=== PATIENT | female | born 1965 | race Caucasian/White ===

== ENCOUNTER 2020-05-21 21:10 | Inpatient (IN) ==
[2020-05-21 22:04] LABS: Apearance,Urine CLEAR (Clear); Bacteria,Urine Occasional /HPF (Few); Bilirubin,Urine Negative (Negative); Blood, Urine Negative (Negative); Glucose,Urine (UA) Negative (Negative); Hyaline Casts,Urine 4 /LPF (0-3); Ketones,Urine Negative (Negative); Mucus,Urine Occasional /LPF (Occasional); Nitrite,Urine Negative (Negative); Protein,Urine Negative; RBC,Urine 1 /HPF (0-4); Squamous Epithelial Cell,Urine Occasional /HPF (0-10); Urine Color Yellow (Yellow); Urine Specific Gravity 1.009 (1.001-1.035); Urine Urobilinogen < 2.0 EU/DL (0.2-1.0); WBC,Urine 1 /HPF (0-6)
[2020-05-21 22:10] LABS: Barbiturates Screen,Urine Negative (Negative); Benzodiazepines Screen,Urine Negative (Negative); Cannabinoid Screen,Urine Negative (Negative); Opiate Screen,Urine Negative (Negative); Phencyclidine Screen,Urine Negative (Negative)
[2020-05-21 22:51] LABS: Basophils # 0.1 10*3/uL (0.0-0.2); Basophils % 0.4 % (0.0-0.8); Eosinophils % 0.1 % (0.00-10.9); Hematocrit 37.9 VOL% (35.7-47.0); Hemoglobin 13.4 GM/DL (12.0-16.0); Immature Granulocytes % 0.8 %; Immature Granulocytes Absolute 0.14 #; Lymphocytes # 2.4 10*3/uL (1.4-4.0); Lymphocytes % 13.7 % (21.3-54.2); Mean Corpuscular HGB Conc 35.4 GM/DL (32-36); Mean Corpuscular Volume 90.5 FL (87-102); Monocytes % 6.9 % (1.7-12.7); Neutrophils % 78.1 % (38.7-73.9); Platelet Count 444 T/CUMM (130-400); Red Blood Count 4.19 MC/CUMM (3.8-5.5); Red Cell Distribution Width 13.4 % (9.3-17.3); White Blood Count 17.6 T/CUMM (4-12)
[2020-05-21 23:02] LABS: INR 1.1; PT Patient Result 11.3 SECS (9.8-11.9); Partial Thromboplastin Time 34.1 SECS (23.9-33.8)
[2020-05-21] MEDS ORDERED: ONDANSETRON 4 MG/2 ML VIAL IV ONE (23:23)
[2020-05-21] MEDS ORDERED: MORPHINE 4 MG/1 ML VIAL IV STA (23:23)
[2020-05-21 23:24] LABS: Alanine Aminotransferase 38 U/L (13-56); Albumin 3.7 G/DL (3.4-5.0); Alkaline Phosphatase 90 U/L (45-117); Aspartate Amino Transferase 64 U/L (0-37); Blood Urea Nitrogen 3 MG/DL (7-18); Calcium 9.2 MG/DL (8.5-10.1); Estimated Glom Filtration Rate 106 ML/MIN; Glucose 104 MG/DL (74-106); Osmolality,Calculated 240.1 MOS/KG (273-304); Total Protein 7.3 G/DL (6.4-8.3)
[2020-05-22] MEDS ORDERED: ONDANSETRON 4 MG/2 ML VIAL IV PRN (00:50)
[2020-05-22] MEDS ORDERED: SODIUM CHLORIDE 0.9% 1,000 ML IV SCH (01:00)
[2020-05-22] MEDS: MORPHINE 4 MG/1 ML VIAL IV PRN ×3 (08:05→21:03)
[2020-05-22] MEDS: PANTOPRAZOLE 40 MG TABLET PO SCH (08:06)
[2020-05-22 08:19] LABS: Basophils # 0.1 10*3/uL (0.0-0.2); Basophils % 0.4 % (0.0-0.8); Eosinophils # 0.1 10*3/uL (0.0-0.87); Eosinophils % 0.5 % (0.00-10.9); Hematocrit 37.2 VOL% (35.7-47.0); Hemoglobin 13.1 GM/DL (12.0-16.0); Immature Granulocytes % 1.1 %; Lymphocytes # 4.3 10*3/uL (1.4-4.0); Lymphocytes % 22.8 % (21.3-54.2); Mean Corpuscular HGB Conc 35.2 GM/DL (32-36); Mean Corpuscular Volume 91.6 FL (87-102); Mean Platelet Volume 8.8 FL (9.6-12.0); Monocytes % 7.7 % (1.7-12.7); Neutrophils % 67.5 % (38.7-73.9); Platelet Count 442 T/CUMM (130-400); Red Blood Count 4.06 MC/CUMM (3.8-5.5); Red Cell Distribution Width 13.4 % (9.3-17.3); White Blood Count 18.7 T/CUMM (4-12)
[2020-05-22 08:37] LABS: Calcium 8.8 MG/DL (8.5-10.1); Osmolality,Calculated 248.6 MOS/KG (273-304)
[2020-05-22 08:46] LABS: Eosinophils 2 % (0-10); Hypochromasia 1+; Lymphocytes 16 % (20-55); Platelet Estimate Adequate; Segmented Neutrophils 75 % (50-85); Total Cells Counted 100
[2020-05-22] MEDS ORDERED: lisinopriL 10 MG TABLET PO SCH (09:00)
[2020-05-22] MEDS: amLODIPine 5 MG TABLET PO SCH (09:27)
[2020-05-22] MEDS: POTASSIUM CHLORIDE 20 MEQ TABLET PO PRN ×4 (09:51→17:05)
[2020-05-22] MEDS ORDERED: MAGNESIUM SULF RIDER 2 GM in PREMIX 1 EACH IV PRN (11:42)
[2020-05-22] MEDS ORDERED: MAGNESIUM SULF RIDER 4 GM in PREMIX 1 EACH IV PRN (11:42)
[2020-05-22] MEDS: SODIUM CHLORIDE 0.9% 1,000 ML IV SCH (11:51)
[2020-05-22] MEDS: FOLIC ACID 1 MG TABLET PO SCH (11:53)
[2020-05-22] MEDS: THIAMINE 100 MG TABLET PO SCH (11:53)
[2020-05-22] MEDS ORDERED: ZALEPLON 5 MG CAPSULE PO SCH (22:00)
[2020-05-22] MEDS: ZALEPLON 5 MG CAPSULE PO SCH (22:23)
[2020-05-23] MEDS: MORPHINE 4 MG/1 ML VIAL IV PRN ×5 (00:59→20:03)
[2020-05-23] MEDS: SODIUM CHLORIDE 0.9% 1,000 ML IV SCH ×2 (01:46→15:54)
[2020-05-23 04:55] LABS: Calcium 8.3 MG/DL (8.5-10.1); Osmolality,Calculated 264.4 MOS/KG (273-304)
[2020-05-23 05:06] LABS: Basophils # 0.1 10*3/uL (0.0-0.2); Basophils % 0.5 % (0.0-0.8); Eosinophils # 0.1 10*3/uL (0.0-0.87); Hematocrit 31.9 VOL% (35.7-47.0); Immature Granulocytes % 0.6 %; Immature Granulocytes Absolute 0.06 #; Lymphocytes # 3.3 10*3/uL (1.4-4.0); Lymphocytes % 31.2 % (21.3-54.2); Mean Corpuscular HGB Conc 34.2 GM/DL (32-36); Mean Corpuscular Volume 93.5 FL (87-102); Mean Platelet Volume 8.6 FL (9.6-12.0); Monocytes % 10.1 % (1.7-12.7); Neutrophils % 56.6 % (38.7-73.9); Red Blood Count 3.41 MC/CUMM (3.8-5.5); Red Cell Distribution Width 14.2 % (9.3-17.3)
[2020-05-23 05:11] LABS: Hemoglobin 10.9 GM/DL (12.0-16.0); Platelet Count 347 T/CUMM (130-400); White Blood Count 10.6 T/CUMM (4-12)
[2020-05-23] MEDS: amLODIPine 5 MG TABLET PO SCH (09:43)
[2020-05-23] MEDS: FOLIC ACID 1 MG TABLET PO SCH (09:43)
[2020-05-23] MEDS: THIAMINE 100 MG TABLET PO SCH (09:44)
[2020-05-23] MEDS: PANTOPRAZOLE 40 MG TABLET PO SCH (09:44)
[2020-05-23] MEDS: NICOTINE 21 MG/24 HR PATCH TRANSDERM SCH (11:46)
[2020-05-23] MEDS: ZALEPLON 5 MG CAPSULE PO SCH (20:04)
[2020-05-23] MEDS: LORazepam 2 MG/1 ML VIAL IV PRN (21:43)
[2020-05-24] MEDS: MORPHINE 4 MG/1 ML VIAL IV PRN ×4 (03:18→20:14)
[2020-05-24] MEDS: SODIUM CHLORIDE 0.9% 1,000 ML IV SCH (05:16)
[2020-05-24 05:52] LABS: Albumin 3.6 G/DL (3.4-5.0); Calcium 9.3 MG/DL (8.5-10.1); Osmolality,Calculated 263.2 MOS/KG (273-304)
[2020-05-24] MEDS: NICOTINE 21 MG/24 HR PATCH TRANSDERM SCH (08:29)
[2020-05-24] MEDS: LORazepam 2 MG/1 ML VIAL IV PRN ×3 (08:33→20:15)
[2020-05-24] MEDS: PANTOPRAZOLE 40 MG TABLET PO SCH (08:36)
[2020-05-24] MEDS: THIAMINE 100 MG TABLET PO SCH (08:36)
[2020-05-24] MEDS: amLODIPine 5 MG TABLET PO SCH (08:36)
[2020-05-24] MEDS: FOLIC ACID 1 MG TABLET PO SCH (08:36)
[2020-05-24] MEDS ORDERED: NICOTINE 21 MG/24 HR PATCH TRANSDERM SCH (09:00)
[2020-05-24] MEDS: ZALEPLON 5 MG CAPSULE PO SCH (20:13)
[2020-05-25] MEDS: LORazepam 2 MG/1 ML VIAL IV PRN ×6 (00:20→22:19)
[2020-05-25] MEDS: MORPHINE 4 MG/1 ML VIAL IV PRN ×6 (00:21→22:18)
[2020-05-25] MEDS: NICOTINE 21 MG/24 HR PATCH TRANSDERM SCH (08:37)
[2020-05-25] MEDS: THIAMINE 100 MG TABLET PO SCH (08:39)
[2020-05-25] MEDS: FOLIC ACID 1 MG TABLET PO SCH (08:39)
[2020-05-25] MEDS: PANTOPRAZOLE 40 MG TABLET PO SCH (08:39)
[2020-05-25] MEDS: amLODIPine 5 MG TABLET PO SCH (08:51)
[2020-05-25] MEDS: hydrALAZINE 25 MG TABLET PO PRN (18:47)
[2020-05-25] MEDS: ZALEPLON 5 MG CAPSULE PO SCH (20:50)
[2020-05-26] MEDS: MORPHINE 4 MG/1 ML VIAL IV PRN ×3 (02:26→10:41)
[2020-05-26] MEDS: LORazepam 2 MG/1 ML VIAL IV PRN ×3 (02:26→10:45)
[2020-05-26] MEDS: hydrALAZINE 25 MG TABLET PO PRN (06:28)
[2020-05-26 06:29] LABS: Basophils # 0.1 10*3/uL (0.0-0.2); Basophils % 0.5 % (0.0-0.8); Eosinophils # 0.1 10*3/uL (0.0-0.87); Eosinophils % 1.2 % (0.00-10.9); Hematocrit 31.1 VOL% (35.7-47.0); Hemoglobin 10.4 GM/DL (12.0-16.0); Immature Granulocytes % 0.5 %; Immature Granulocytes Absolute 0.05 #; Lymphocytes # 2.2 10*3/uL (1.4-4.0); Mean Corpuscular HGB Conc 33.4 GM/DL (32-36); Mean Corpuscular Volume 96.6 FL (87-102); Mean Platelet Volume 9.5 FL (9.6-12.0); Monocytes % 8.2 % (1.7-12.7); Neutrophils % 67.6 % (38.7-73.9); Platelet Count 316 T/CUMM (130-400); Red Blood Count 3.22 MC/CUMM (3.8-5.5); Red Cell Distribution Width 14.3 % (9.3-17.3); White Blood Count 10.1 T/CUMM (4-12)
[2020-05-26 06:55] LABS: Calcium 9.1 MG/DL (8.5-10.1); Osmolality,Calculated 268.1 MOS/KG (273-304)
[2020-05-26] MEDS: NICOTINE 21 MG/24 HR PATCH TRANSDERM SCH (08:52)
[2020-05-26] MEDS: PANTOPRAZOLE 40 MG TABLET PO SCH (08:54)
[2020-05-26] MEDS: amLODIPine 5 MG TABLET PO SCH (08:54)
[2020-05-26] MEDS: THIAMINE 100 MG TABLET PO SCH (08:54)
[2020-05-26] MEDS: FOLIC ACID 1 MG TABLET PO SCH (08:54)
[2020-05-26 12:00] VITALS: BP 130/74
== END 2020-05-26 15:55 | disposition home or self-care (01) | DRG 641 ==
LOC: N.ED 21:10 → SUATTDRO 05-22 00:50 → N.EDINP 05-22 00:50 → N.4E 05-22 04:18
PROVIDERS: ADMIT Internal Medicine; ATTEND Internal Medicine Geriatric Medicine

== ENCOUNTER 2020-08-30 15:13 | Observation (INO) ==
[2020-08-30] MEDS ORDERED: ONDANSETRON 4 MG/2 ML VIAL IV STA (22:53)
[2020-08-30] MEDS ORDERED: busPIRone 10 MG TABLET ONE (23:01)
[2020-08-30] MEDS ORDERED: busPIRone 10 MG TABLET PO ONE (23:16)
[2020-08-31 00:04] LABS: Basophils # 0.1 10*3/uL (0.0-0.2); Basophils % 0.6 % (0.0-0.8); Eosinophils # 0.1 10*3/uL (0.0-0.87); Eosinophils % 1.1 % (0.00-10.9); Hematocrit 36.9 VOL% (35.7-47.0); Hemoglobin 11.7 GM/DL (12.0-16.0); Immature Granulocytes % 0.4 %; Immature Granulocytes Absolute 0.05 #; Lymphocytes # 2.9 10*3/uL (1.4-4.0); Mean Corpuscular HGB Conc 31.7 GM/DL (32-36); Mean Corpuscular Volume 82.9 FL (87-102); Mean Platelet Volume 8.9 FL (9.6-12.0); Monocytes % 7.3 % (1.7-12.7); Neutrophils % 67.6 % (38.7-73.9); Platelet Count 350 T/CUMM (130-400); Red Blood Count 4.45 MC/CUMM (3.8-5.5); Red Cell Distribution Width 15.7 % (9.3-17.3); White Blood Count 12.7 T/CUMM (4-12)
[2020-08-31 00:31] LABS: Alanine Aminotransferase 33 U/L (13-56); Albumin 3.6 G/DL (3.4-5.0); Alkaline Phosphatase 94 U/L (45-117); Aspartate Amino Transferase 46 U/L (0-37); Bilirubin,Total < 0.39 MG/DL (0.2-1.0); Blood Urea Nitrogen 7 MG/DL (7-18); Calcium 9.3 MG/DL (8.5-10.1); Estimated Glom Filtration Rate 79 ML/MIN; Glucose 92 MG/DL (74-106); Osmolality,Calculated 265.2 MOS/KG (273-304); Troponin I < 0.015 NG/ML (0.00-0.045)
[2020-08-31 00:36] LABS: Bacteria,Urine Few /HPF (Few); Bilirubin,Urine Negative (Negative); Blood, Urine Negative (Negative); Glucose,Urine (UA) Negative (Negative); Hyaline Casts,Urine 6 /LPF (0-3); Ketones,Urine Negative (Negative); Mucus,Urine Occasional /LPF (Occasional); Nitrite,Urine Negative (Negative); Protein,Urine 30 MG/DL; RBC,Urine 2 /HPF (0-4); Squamous Epithelial Cell,Urine Occasional /HPF (0-10); Urine Appearance Slightly Hazy (Clear); Urine Specific Gravity 1.024 (1.001-1.035); Urine Urobilinogen < 2.0 EU/DL (0.2-1.0); WBC,Urine 20 /HPF (0-6)
[2020-08-31] MEDS ORDERED: POTASSIUM CHLORIDE 20 MEQ TABLET PO STA (00:38)
[2020-08-31] MEDS ORDERED: cefTRIAXone 1,000 MG in SODIUM CHLORIDE 0.9% 100 ML IV STA (01:22)
[2020-08-31 01:32] LABS: Barbiturates Screen,Urine Negative (Negative); Benzodiazepines Screen,Urine Positive (Negative); Cannabinoid Screen,Urine Negative (Negative); Opiate Screen,Urine Negative (Negative); Phencyclidine Screen,Urine Negative (Negative)
[2020-08-31] MEDS ORDERED: ONDANSETRON 4 MG/2 ML VIAL IV PRN (06:44)
[2020-08-31] MEDS ORDERED: ACETAMINOPHEN 325 MG TABLET PO PRN (06:44)
[2020-08-31] MEDS ORDERED: SODIUM CHLOR 0.9% KCL 40 MEQ 40 MEQ/1,000 ML BAG IV SCH (07:00)
[2020-08-31] MEDS ORDERED: ENOXAPARIN 40 MG/0.4 ML SYRINGE SUBCUT SCH (07:00)
[2020-08-31 08:05] LABS: Basophils # 0.1 10*3/uL (0.0-0.2); Basophils % 0.6 % (0.0-0.8); Eosinophils # 0.1 10*3/uL (0.0-0.87); Hemoglobin 11.1 GM/DL (12.0-16.0); Immature Granulocytes % 0.4 %; Immature Granulocytes Absolute 0.04 #; Lymphocytes % 18.9 % (21.3-54.2); Mean Corpuscular HGB Conc 31.7 GM/DL (32-36); Mean Corpuscular Volume 83.3 FL (87-102); Mean Platelet Volume 8.7 FL (9.6-12.0); Monocytes % 12.8 % (1.7-12.7); Neutrophils % 66.3 % (38.7-73.9); Platelet Count 304 T/CUMM (130-400); Red Cell Distribution Width 15.9 % (9.3-17.3); White Blood Count 10.4 T/CUMM (4-12)
[2020-08-31] MEDS ORDERED: PANTOPRAZOLE 40 MG TABLET PO SCH (09:00)
[2020-08-31] MEDS ORDERED: busPIRone 10 MG TABLET PO SCH (09:00)
[2020-08-31 11:35] VITALS: BP 108/73
== END 2020-08-31 13:00 | disposition home or self-care (01) ==
LOC: N.ED 15:13 → N.EDINP 15:13 → N.4E 08-31 09:30
PROVIDERS: ADMIT Internal Medicine; ATTEND Internal Medicine

== ENCOUNTER 2020-10-02 21:45 | Inpatient (IN) ==
[2020-10-02] MEDS ORDERED: ONDANSETRON 4 MG/2 ML VIAL IV STA (22:27)
[2020-10-02] MEDS ORDERED: SODIUM CHLORIDE 0.9% 500 ML IV STA (22:27)
[2020-10-02] MEDS ORDERED: PANTOPRAZOLE 40 MG VIAL IV STA (22:27)
[2020-10-02] MEDS ORDERED: HYDROmorphone 2 MG/1 ML VIAL IV STA ×2 (22:27→23:47)
[2020-10-02 22:37] LABS: Basophils % 0.2 % (0.0-0.8); Eosinophils % 0.2 % (0.00-10.9); Hematocrit 38.4 VOL% (35.7-47.0); Immature Granulocytes % 0.4 %; Immature Granulocytes Absolute 0.07 #; Lymphocytes # 1.4 10*3/uL (1.4-4.0); Lymphocytes % 8.3 % (21.3-54.2); Mean Corpuscular HGB Conc 31.3 GM/DL (32-36); Mean Corpuscular Volume 85.1 FL (87-102); Mean Platelet Volume 9.9 FL (9.6-12.0); Monocytes % 5.5 % (1.7-12.7); Neutrophils % 85.4 % (38.7-73.9); Platelet Count 488 T/CUMM (130-400); Red Blood Count 4.51 MC/CUMM (3.8-5.5); Red Cell Distribution Width 17.3 % (9.3-17.3); White Blood Count 16.2 T/CUMM (4-12)
[2020-10-02 22:49] LABS: Albumin 3.3 G/DL (3.4-5.0); Bilirubin,Total 0.6 MG/DL (0.2-1.0); Calcium 8.7 MG/DL (8.5-10.1); Osmolality,Calculated 272.7 MOS/KG (273-304); Potassium 3.9 MMOL/L (3.5-5.1); Total Protein 7.3 G/DL (6.4-8.3)
[2020-10-02] MEDS ORDERED: PIPERACILLIN/TAZOBACTAM 3,375 MG in SODIUM CHLORIDE 0.9% 100 ML IV STA (23:06)
[2020-10-02] MEDS ORDERED: propofoL 200 MG/20 ML VIAL IV ONE (23:47)
[2020-10-02] MEDS ORDERED: DEXAMETHASONE 4 MG/1 ML VIAL ONE ×2 (23:47→23:56)
[2020-10-02] MEDS ORDERED: ONDANSETRON 4 MG/2 ML VIAL ONE (23:47)
[2020-10-02] MEDS ORDERED: LIDOCAINE 2% 5 ML VIAL ONE (23:47)
[2020-10-02] MEDS ORDERED: SEVOFLURANE 1 UNIT/15 MINUTE INH ONE ×2 (23:47→23:56)
[2020-10-02] MEDS ORDERED: SUCCINYLCHOLINE 200 MG/10 ML VIAL ONE (23:47)
[2020-10-02] MEDS ORDERED: ROCURONIUM 50 MG/5 ML VIAL IV ONE (23:47)
[2020-10-02] MEDS ORDERED: MIDAZOLAM 2 MG/2 ML VIAL ONE (23:48)
[2020-10-02] MEDS ORDERED: fentaNYL 100 MCG/2 ML VIAL ONE (23:48)
[2020-10-02] MEDS ORDERED: ACETAMINOPHEN 1,000 MG/100 ML VIAL IV ONE (23:56)
[2020-10-02] MEDS ORDERED: KETOROLAC 30 MG/1 ML VIAL ONE (23:56)
[2020-10-03] MEDS: LACTATED RINGERS 1,000 ML IV SCH ×4 (00:05→11:03)
[2020-10-03] MEDS ORDERED: PHENYLEPHRINE 1 MG/10 ML SYRINGE IV ONE ×5 (00:17→01:34)
[2020-10-03] MEDS ORDERED: ePHEDrine 50 MG/ML VIAL ONE (00:29)
[2020-10-03] MEDS ORDERED: LACTATED RINGERS 2,000 ML IV ONE (01:22)
[2020-10-03] MEDS ORDERED: SUGAMMADEX 200 MG/2 ML VIAL IV ONE (01:39)
[2020-10-03] MEDS ORDERED: NALOXONE 0.4 MG/ML VIAL IV PRN (01:42)
[2020-10-03] MEDS ORDERED: ONDANSETRON 4 MG/2 ML VIAL IV PRN (01:43)
[2020-10-03] MEDS ORDERED: SEVOFLURANE 1 UNIT/15 MINUTE INH ONE ×5 (02:02→02:03)
[2020-10-03] MEDS: DEXTROSE 5% LACTATED RINGERS 1,000 ML IV SCH ×3 (03:31→20:12)
[2020-10-03] MEDS: HYDROmorphone PCA 30 MG/30 ML SYRINGE IV SCH (04:37)
[2020-10-03] MEDS: cefOXitin 2,000 MG in SYRINGE 1 EACH IV SCH ×3 (06:19→17:42)
[2020-10-03 06:32] LABS: Bacteria,Urine Occasional /HPF (Few); Bilirubin,Urine Negative (Negative); Blood, Urine Negative (Negative); Glucose,Urine (UA) Negative (Negative); Hyaline Casts,Urine 1 /LPF (0-3); Ketones,Urine Negative (Negative); Mucus,Urine Occasional /LPF (Occasional); Nitrite,Urine Negative (Negative); Protein,Urine Negative; Urine Appearance CLEAR (Clear); Urine Color Yellow (Yellow); Urine Specific Gravity 1.011 (1.001-1.035); Urine Urobilinogen < 2.0 EU/DL (0.2-1.0); WBC,Urine <1 /HPF (0-6)
[2020-10-03 06:43] LABS: Basophils % 0.1 % (0.0-0.8); Hematocrit 35.7 VOL% (35.7-47.0); Hemoglobin 10.9 GM/DL (12.0-16.0); Immature Granulocytes % 0.4 %; Immature Granulocytes Absolute 0.12 #; Lymphocytes # 0.6 10*3/uL (1.4-4.0); Lymphocytes % 2.2 % (21.3-54.2); Mean Corpuscular HGB Conc 30.5 GM/DL (32-36); Mean Corpuscular Volume 86.4 FL (87-102); Mean Platelet Volume 9.4 FL (9.6-12.0); Neutrophils % 95.3 % (38.7-73.9); Platelet Count 390 T/CUMM (130-400); Red Blood Count 4.13 MC/CUMM (3.8-5.5); Red Cell Distribution Width 17.2 % (9.3-17.3); White Blood Count 28.1 T/CUMM (4-12)
[2020-10-03 06:59] LABS: Calcium 8.3 MG/DL (8.5-10.1); Osmolality,Calculated 273.7 MOS/KG (273-304); Potassium 3.8 MMOL/L (3.5-5.1)
[2020-10-03 07:07] LABS: Band Neutrophils 2 % (0-10); Hypochromasia 1+; Lymphocytes 4 % (20-55); Microcytosis 1+; Platelet Estimate Adequate; Segmented Neutrophils 93 % (50-85); Total Cells Counted 100
[2020-10-03] MEDS: PANTOPRAZOLE 40 MG VIAL IV SCH (08:42)
[2020-10-03] MEDS: ALPRAZolam 0.5 MG TABLET PO PRN (14:49)
[2020-10-04] MEDS: ALPRAZolam 0.5 MG TABLET PO PRN ×2 (00:06→20:55)
[2020-10-04] MEDS: DEXTROSE 5% LACTATED RINGERS 1,000 ML IV SCH ×2 (04:10→10:17)
[2020-10-04 06:46] LABS: Bacteria,Urine Occasional /HPF (Few); Bilirubin,Urine Negative (Negative); Blood, Urine Moderate mg/dL (Negative); Glucose,Urine (UA) Negative (Negative); Hyaline Casts,Urine 1 /LPF (0-3); Ketones,Urine Negative (Negative); Mucus,Urine Moderate /LPF (Occasional); Nitrite,Urine Negative (Negative); Protein,Urine 30 MG/DL; RBC,Urine 80 /HPF (0-4); Urine Appearance CLEAR (Clear); Urine Color Amber (Yellow); Urine Specific Gravity 1.019 (1.001-1.035); Urine Urobilinogen < 2.0 EU/DL (0.2-1.0); WBC,Urine 37 /HPF (0-6)
[2020-10-04] MEDS: PANTOPRAZOLE 40 MG VIAL IV SCH (08:54)
[2020-10-04] MEDS ORDERED: HYDROmorphone PCA 30 MG/30 ML SYRINGE IV SCH (09:45)
[2020-10-04] MEDS ORDERED: ALPRAZolam 0.5 MG TABLET PO PRN (10:08)
[2020-10-04] MEDS ORDERED: ZALEPLON 5 MG CAPSULE PO PRN (10:08)
[2020-10-04] MEDS: carvediloL 12.5 MG TABLET PO SCH (20:55)
[2020-10-04] MEDS ORDERED: amLODIPine 5 MG TABLET PO SCH (21:00)
[2020-10-04] MEDS ORDERED: VALSARTAN 160 MG TABLET PO SCH (21:00)
[2020-10-05] MEDS: HYDROmorphone PCA 30 MG/30 ML SYRINGE IV SCH (07:50)
[2020-10-05] MEDS: DEXTROSE 5% LACTATED RINGERS 1,000 ML IV SCH (07:50)
[2020-10-05] MEDS ORDERED: cefOXitin 1,000 MG in SYRINGE 1 EACH IV SCH (08:00)
[2020-10-05 08:48] LABS: Basophils % 0.2 % (0.0-0.8); Eosinophils # 0.1 10*3/uL (0.0-0.87); Eosinophils % 0.5 % (0.00-10.9); Hematocrit 31.2 VOL% (35.7-47.0); Hemoglobin 9.7 GM/DL (12.0-16.0); Immature Granulocytes % 1.2 %; Lymphocytes # 1.3 10*3/uL (1.4-4.0); Lymphocytes % 7.9 % (21.3-54.2); Mean Corpuscular HGB Conc 31.1 GM/DL (32-36); Mean Corpuscular Volume 86.2 FL (87-102); Mean Platelet Volume 9.2 FL (9.6-12.0); Monocytes % 6.5 % (1.7-12.7); Neutrophils % 83.7 % (38.7-73.9); Platelet Count 323 T/CUMM (130-400); Red Blood Count 3.62 MC/CUMM (3.8-5.5); Red Cell Distribution Width 16.9 % (9.3-17.3)
[2020-10-05] MEDS ORDERED: NON-FORMULARY MEDICATION (Cariprazine [Vraylar] 1.5 mg Capsule) PO SCH (09:00)
[2020-10-05 09:12] LABS: Calcium 8.7 MG/DL (8.5-10.1); Osmolality,Calculated 267.1 MOS/KG (273-304); Potassium 3.6 MMOL/L (3.5-5.1)
[2020-10-05] MEDS ORDERED: SULFAMETHOX/TRIMETHOPRIM 800-160 MG TABLET PO SCH (10:00)
[2020-10-05] MEDS: PANTOPRAZOLE 40 MG VIAL IV SCH (10:13)
[2020-10-05] MEDS: carvediloL 12.5 MG TABLET PO SCH (10:13)
[2020-10-05] MEDS: ALPRAZolam 0.5 MG TABLET PO PRN (10:18)
[2020-10-05] MEDS ORDERED: KETOROLAC 10 MG TABLET PO PRN (11:12)
[2020-10-05 11:25] VITALS: BP 129/75
[2020-10-05] MEDS ORDERED: AMOXICILLIN 500 MG CAPSULE PO SCH (12:00)
[2020-10-05] MEDS ORDERED: CLARITHROMYCIN 500 MG TABLET PO SCH (12:00)
[2020-10-05] MEDS ORDERED: PANTOPRAZOLE 40 MG VIAL IV SCH (21:00)
[2020-10-05] MEDS ORDERED: PANTOPRAZOLE 40 MG TABLET PO SCH (21:00)
== END 2020-10-05 16:35 | disposition home or self-care (01) | DRG 329 ==
LOC: EDBD → EDUNIT# → N.ED 21:45 → N.3E 10-03 00:05 → N.EDINP 10-03 01:43 → N.3E 10-03 03:06
PROVIDERS: ADMIT Surgery; ATTEND Surgery